=== PATIENT | male | born 1935 | race Caucasian/White ===

== ENCOUNTER 2025-02-26 13:07 | Outpatient (CLI) | payer MEDICARE | END 2025-02-26 13:08 | disposition home or self-care (01) | LOC: CSHCT 13:07 | PROVIDERS: ATTEND Orthopaedic Surgery | DX: Z01.818 Encounter for other preprocedural examination (principal); M17.11 Unilateral primary osteoarthritis, right knee | CPT/HCPCS: 80048; 85025; 85610; 87081; 93005; 93010 ==